=== PATIENT | female | born 1990 | race Asian ===

== ENCOUNTER 2022-04-29 19:24 | Inpatient (IN) ==
[2022-04-29] MEDS ORDERED: OXYTOCIN 30 UNITS/500 ML BAG IV PRN ×2 (19:32→23:09)
[2022-04-29] MEDS ORDERED: LIDOCAINE 1% LOCAL 20 ML VIAL INFIL PRN (19:32)
[2022-04-29] MEDS ORDERED: LACTATED RINGER'S 1,000 ML IV PRN (19:32)
[2022-04-29] MEDS ORDERED: PENICILLIN G POTASSIUM 6 MU in DEXTROSE 5% 250 ML IV STA (19:32)
[2022-04-29 20:08] LABS: Hematocrit (blood only) 36.7 % (37.0-47.0); Hemoglobin 12.4 g/dl (12.0-16.0); Mean Corpuscular Hgb Conc 33.8 g/dL (32.0-36.0); Mean Corpuscular Volume 94.8 fL (80.0-100.0); Mean Platelet Volume 10.3 fL (9.4-12.4); Platelet Count 292 K/uL (130-400); RDW Coefficient of Variation 13.3 % (11.5-14.5); RDW Standard Deviation 45.6 fL (36.4-46.3); Red Blood Count 3.87 M/uL (4.20-5.40); White Blood Count 10.36 K/ul (4.8-10.8)
--- NOTE | 2022-04-29 20:24 | History & Physical Report ---
Date of Service April 29, 2022 Assessment & Plan (1) Carrier of group B Streptococcus: Plan: Pao is a 32-year-old currently at 37 weeks 2 days gestational age. Patient presents in active labor. 1. Fetus: Cat 1 2. Labor: Active 3. GBS positive: PCN 4. Vital: mildly elevated blood pressures. However patient is acutely painful in active labor. Will continue to monitor. (2) Encounter for supervision of normal in multigravida: (3) Normal labor: Admission and Anticipated Discharge Date Admission Date: April 29, 2022 History of Present Illness Primary Care Provider: NO PCP Pao is a 32-year-old currently at 37 weeks 2 days gestational age. Patient presents in active labor. Denies leakage of fluid or vaginal bleeding. Good movement. complicated by: HSIL on pap @ [facility] visit *recommend colpo-done 12/13/21, plan rpt colpo [address]wk pp with [address] + Chlamydia @ [facility] visit *JACQUELINE 8wks after treatment--neg and neg again 01/2022 *Retest at 36wks GBS Positive in Urine * treat in labor. OB Labs: Blood Type B Positive 11/07/21 Antibody Screen NEGATIVE 11/07/21 Hemoglobin 12.2 g/dl (12.0-16.0) 02/17/22 Hematocrit 37.0 % (34.1-44.9) 02/17/22 Mean Corpuscular Volume 94.2 fL (80.0-100.0) 12/12/21 Platelet Count 382 K/uL (130-400)B 12/12/21 Rubella IgG Antibody Immune (Immune) 11/07/21 Rapid Plasma Reagin Nonreactive (Nonreactive) 11/07/21 Hepatitis B Surface Antigen. NON-REACTIVE (NON-REACTIVE) 11/07/21 Hepatitis C Antibody (EIA) NON-REACTIVE (NON-REACTIVE) 11/07/21 HIV (1&2) Ag and Ab Confirmation NON-REACTIVE (NON-REACTIVE) 11/07/21 A Glucose 1 Hour 50 gm Load 113 mg/dl (70-130) 02/17/22 OB Optional Labs: Chlamydia trachomatis RNA Not Detected (NotDetected) 02/10/22 Neisseria gonorrhoeae RNA Not Detected (NotDetected) 02/10/22 Labs Reviewed: cfdna-low risk--mln Allergies Allergy/AdvReac Type Severity Reaction Status Date / Time No Known Allergies Allergy Verified 04/29/22 20:05 Home Medications Medication Instructions Recorded Confirmed Type [id number] 1 mg tab PO 02/10/22 04/21/22 History tablet lidocaine 5 % topical cream 1 applic topical BID PRN pain #15 04/14/22 04/21/22 Rx grams Patient History Medical History (Updated 04/29/22 @ 20:22 by Bhavin Engle MD) Chlamydia Surgical History S/P appendectomy Family History (Updated 10/31/21 @ 11:40 by Deedee Virgen) Denies family history of Ovarian cancer Breast cancer Colorectal cancer Social History (Updated 10/31/21 @ 11:28 by Deedee Virgen) Smoking Status: Never smoker Hx Alcohol Use: No Hx Substance Use: No Preferred Language: 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
[2022-04-29] MEDS ORDERED: PENICILLIN G POTASSIUM 3 MU in DEXTROSE 5% 100 ML IV PRN (22:32)
[2022-04-29] MEDS ORDERED: IBUPROFEN 600 MG TAB PO PRN (23:09)
[2022-04-29] MEDS ORDERED: HYDROCORTISONE ACETATE 25 MG SUPP PR PRN (23:09)
[2022-04-29] MEDS ORDERED: ACETAMINOPHEN 325 MG TAB PO PRN (23:09)
[2022-04-29] MEDS ORDERED: BENZOCAINE 20% AER SPR 82.5 GM CAN EXT PRN (23:09)
[2022-04-29] MEDS ORDERED: DIPHTHERIA/TETANUS/PERTUSSIS 0.5mL SYR/VIAL (Age 7+yrs) IM ONE (23:09)
[2022-04-29] MEDS ORDERED: bisacodyL 10 MG SUPP PR PRN (23:09)
[2022-04-30] MEDS: DOCUSATE SODIUM 100 MG CAP PO SCH ×2 (08:47→19:39)
[2022-04-30] MEDS: PRENATAL VITAMIN 1 TAB PO SCH (08:47)
[2022-04-30] MEDS: FERROUS SULFATE 325 MG TAB PO SCH (08:47)
[2022-04-30] MEDS ORDERED: FLUARIX QUADRIVALENT 0.5 ML SYR IM ONE (09:00)
--- NOTE | 2022-04-30 09:01 | Obstetrical Progress Note ---
Date of Service April 30, 2022 Assessment & Plan (1) Encounter for care and examination after delivery: Day 1 status post vaginal delivery. Patient doing well. Routine care. Subjective Ambulation: ambulating normally Voiding: no voiding problems Passing Gas:: Yes Diet Tolerance:: regular diet Lochia:: Moderate Feeding Type:: breast feeding Physical Exam Constitutional WD/WN, vitals as above Respiratory normal respiratory effort; no respiratory distress and no labored breathing Gastrointestinal (Abdomen) Inspection/Auscultation: abdomen normal to inspection; abdomen not distended Percussion/Palpation: abdomen soft; abdomen nontender, no guarding and abdomen not rigid Genitourinary OB Exam Abdomen: + fundal height Fundus: + firm and + relation to umbilicus (Below); not tender or not boggy Results & Data ([facility]) Vital Signs (Past 12 Hours) Vital Signs Temp Pulse Pulse Resp BP BP Pulse Ox 04/30/22 05:30 36.8 C 70 16 129/76 97 04/30/22 02:00 37.3 C 67 16 130/72 97 04/30/22 01:00 18 04/30/22 00:30 16 04/30/22 00:00 18 04/29/22 23:45 18 04/29/22 23:30 18 04/29/22 23:15 20 04/29/22 23:00 18 04/30/22 01:06 62 103/53 L 04/30/22 00:47 65 112/54 L 04/30/22 00:32 62 109/56 L 04/30/22 00:17 74 133/73 04/30/22 00:01 70 142/75 H 04/29/22 23:46 74 139/72 04/29/22 23:36 64 133/66 04/29/22 23:20 71 113/61 04/29/22 23:01 80 134/75 O2 Del Method 04/30/22 05:30 Room Air 04/30/22 02:00 Room Air 04/30/22 01:00 04/30/22 00:30 04/30/22 00:00 04/29/22 23:45 04/29/22 23:30 04/29/22 23:15 04/29/22 23:00 04/30/22 01:06 04/30/22 00:47 04/30/22 00:32 04/30/22 00:17 04/30/22 00:01 04/29/22 23:46 04/29/22 23:36 04/29/22 23:20 04/29/22 23:01
--- NOTE | 2022-04-30 17:06 | Delivery Summary ---
DATE OF SERVICE: 04/29/2022 PROCEDURE: Normal spontaneous vaginal delivery with second-degree perineal laceration repair. SURGEON: Bhavin Engle MD. PREOPERATIVE DIAGNOSES: 1. Single intrauterine at 37 weeks 3 days gestational age. 2. Active labor. 3. GBS positive. POSTOPERATIVE DIAGNOSES: 1. Single intrauterine at 37 weeks 3 days gestational age. 2. Active labor. 3. GBS positive. 4. Status post procedure. ESTIMATED BLOOD LOSS: 200 mL DRAINS: None. FLUIDS: Continuous lactated Ringer. URINE OUTPUT: Not measured. COMPLICATIONS: None. FINDINGS: Viable male with weight of 7 pounds 7 ounces and Apgars of 7 and 8 at 1 and 5 luis lokesh respectively. HOSPITAL COURSE: The patient was admitted in active labor at 7 cm dilation. The patient received in itial dose of penicillin. After approximately 2 hours after initial dose, the patient was found to be complete-complete, +1 station with a strong urge to push. The patient was still intact at that time and underwent artificial rupture of membranes. The patient then pushed for approximately 5 minutes to achieve delivery with a full rupture time of less than 10 minutes. DESCRIPTION OF PROCEDURE: The patient progressed to 10 cm dilated, 100% effaced, positive 1 station, pushed over intact perineum without anesthesia and delivered a viable male with weight and A pgars as noted above. Head of the delivered in MARISA position, restituted to left transverse. No nuchal cord was noted. Body and shoulders quickly followed. was noted to be vigorous so on after delivery and 1 minute delayed cord clamping was initiated. Cord was then double clamped and cut. remained on maternal abdomen. Cord blood was obtained. Attention was then turned to the delivery of placenta, which delivered intact, 3-vessel cord, gentle cord traction. On inspection of perineum, vagina, cervix was noted to be a second-degree perineal laceration, which was repaired with 3-0 Vicryl in continuous running traditional crown stitch. Needle, sponge, and instrument count s were correct at the completion of the case. Both mother and stable in the immediate post-d elivery period. Job ID: [id number]
[2022-04-30] MEDS ORDERED: bisacodyL 5 MG TABEC PO SCH (20:00)
--- NOTE | 2022-05-01 05:32 | Obstetrical Progress Note ---
Date of Service May 01, 2022 Assessment & Plan (1) care following vaginal delivery: (2) Carrier of group B Streptococcus: Plan - Overall, feeling well and eating well today - feeding going well without concern - Urinating and passing gas appropriately - Ambulating well in room - Pain controlled w/ Ibuprofen - Hgb 12.4 on 04/29 - Vitals stable and wnl - Routine PP care progressing well - GBS +, no PCN - Anticipate discharge @ 24-48 hours PP - Recommending f/u outpatient in 6 weeks Admission and Anticipated Discharge Date Admission Date: April 29, 2022 Supervising Physician Co-Signing Physician Notes Patient seen with resident and agree with the above findings and plan. Stable for discharge Subjective Patient is a 32 F who is PPD #2 following delivery at 37 2/7. She reports feeling well overall this morning. - Ambulation - well throughout room - Voiding/Diallo - independent voids, no dysuria or pressure - Gas/Stool - passing gas, no bowel movement - Diet - regular, no nausea or emesis - Lochia - diminishing, light amount - Infant Feeding Type - breast feeding - Pain Level - states 10/10 lower abdominal pain, describes as cramping, worse w/ breast feeding Review of Systems - Denies fever, chills, sweats - Denies shortness of breath, difficulty breathing, chest pain, palpitations, chest pressure. - Denies breast pain. - Denies dysuria. - Denies headache or changes in vision. Physical Exam Constitutional: General: Alert, oriented. No acute distress. Cardiac: RRR, normal S1/S2, no murmurs/rubs/gallops. Respiratory: Non-labored, CTAB, no wheezes/rales/rhonchi. Symmetric chest rise. Abdomen: Soft, nontender, nondistended. Bowel sounds present. Uterus: Uterine fundus firm, palpable 2 cm below umbilicus. Lower Extremities: No lower extremity edema or swelling. No deep calf pain. Shekhar's negative bilaterally. Results & Data ([facility]) Vital Signs (Past 12 Hours) Vital Signs Temp Pulse Resp BP Pulse Ox O2 Del Method 05/01/22 03:08 36.5 C 61 18 110/67 98 Room Air 05/01/22 00:15 36.5 C 61 16 116/72 98 Room Air 04/30/22 19:30 36.6 C 68 18 123/70 97 Room Air Resident Activity Tracking Resident Involvement: Resident Care Provided Care Provided: Adult Hospital Medicine
[2022-05-01] MEDS: DOCUSATE SODIUM 100 MG CAP PO SCH (08:13)
[2022-05-01] MEDS: PRENATAL VITAMIN 1 TAB PO SCH (08:13)
[2022-05-01] MEDS: FERROUS SULFATE 325 MG TAB PO SCH (08:13)
== END 2022-05-01 11:55 | disposition home or self-care (01) | DRG 807 ==
LOC: OPB 19:24 → 4S1 19:31 → 4E2 04-30 02:10